=== PATIENT | female | born 1955 | race Two or more races ===

== ENCOUNTER 2019-04-21 09:56 | Outpatient (CLI) | payer MEDICAID ==
[2019-04-21 10:28] LABS: EOSINOPHILS % (AUTO) 0.8 % (0.0-3.0); HEMATOCRIT 43.9 % (37.0-47.0); HEMOGLOBIN 14.5 G/DL (12.0-16.0); LYMPHOCYTES % (AUTO) 29.1 % (20.0-45.0); MEAN CORPUSCULAR VOLUME 92 FL (80-99); NEUTROPHILS % (AUTO) 63.1 % (45.0-75.0); PLATELET COUNT 245 K/UL (150-450); RED BLOOD COUNT 4.77 M/UL (4.20-5.40); RED CELL DISTRIBUTION WIDTH 11.7 % (11.6-14.8); WHITE BLOOD COUNT 6.7 K/UL (4.8-10.8)
[2019-04-21 10:39] LABS: APPEARANCE,URINE CLEAR; BILIRUBIN, URINE NEGATIVE (NEGATIVE); COLOR,URINE PALE YELLOW; GLUCOSE, URINE (UA) NEGATIVE (NEGATIVE); INR 0.9 (0.9-1.1); KETONES,URINE 1+ (NEGATIVE); LEUKOCYTE ESTERASE ,URINE NEGATIVE (NEGATIVE); NITRITE,URINE NEGATIVE (NEGATIVE); PH,URINE 8 (4.5-8.0); PROTEIN,URINE NEGATIVE (NEGATIVE); UROBILINOGEN,URINE NORMAL MG/DL (0.0-1.0)
[2019-04-21 10:46] LABS: ANION GAP 7 mmol/L (5-15); BLOOD UREA NITROGEN 13 mg/dL (7-18); CALCIUM 9.8 MG/DL (8.5-10.1); CARBON DIOXIDE 31 MMOL/L (21-32); CHLORIDE 106 MMOL/L (98-107); CREATININE 0.5 MG/DL (0.55-1.30); POTASSIUM 4.5 MMOL/L (3.5-5.1); SODIUM 143 MMOL/L (136-145)
--- NOTE | 2019-04-21 11:38 | Diagnostic Imaging Report ---
Indication: Cough Technique: 2 views of the chest Comparison: none Findings: Numerous calcified granulomata are seen in the lung apices, particularly on the left. Pleural and parenchymal scarring is seen at the left lung apex, and some parenchymal scarring is seen at the right lung apex. No definite infiltrates, effusions, congestion. Normal heart size. Calcifications projected over the mediastinum may reflect calcite granulomas lymph nodes. Impression: Evidence of old granulomatous disease, as described No definite acute process
== END 2019-04-21 11:56 | disposition home or self-care (01) ==
LOC: RAD 09:56
DX: D05.11 Intraductal carcinoma in situ of right breast (principal); R05 Cough
CPT/HCPCS: 36415; 71046; 80048; 81003; 85025; 85610; 85730; 93005

== ENCOUNTER 2019-05-12 09:42 | Day surgery (SDC) | payer MEDICAID ==
--- NOTE | 2019-05-09 15:00 | Pre-op HX & Phy Repo 2 SIG ---
DATE OF ADMISSION: 05/12/2019 SCHEDULED FOR OUTPATIENT SURGERY: May 12, 2019. HISTORY OF PRESENT ILLNESS: The patient is a 63-year-old female in overall good health with ductal carcinoma in situ of the right breast. The patient presented with a right breast mass in the upper outer quadrant. The imaging revealed to be a benign cyst, however, two suspicious areas were identified in the upper outer quadrant of the right breast on mammogram and ultrasound at 10 o'clock 6 cm from the nipple a 4 x 4 x 3 mm suspicious mass and at 11 o'clock 3 cm from the nipple an 8 x 5 x 8 mm suspicious mass. Core biopsy revealed ductal carcinoma in situ. She is scheduled to undergo right breast partial mastectomy with preoperative bracketing needle localization. PAST MEDICAL HISTORY/MEDICATIONS: None. ALLERGIES: None. OPERATIONS: Ear surgery x2. REVIEW OF SYSTEMS: She has no prior history of breast disease. She has a cousin, who had breast cancer. She is 2, para 2, menopausal. PHYSICAL EXAMINATION: VITAL SIGNS: The patient is 5 foot 2 inches, 121 pounds. Vital signs within normal limits. HEENT: Within normal limits. LUNGS: Clear. HEART: Regular rhythm. BREASTS: Moderate in size and ptotic. There is 1 cm mass in the upper outer quadrant of the right breast consistent with benign cyst. There is no axillary or supraclavicular lymphadenopathy. ABDOMEN: Soft. PELVIC: Per primary care physician. RECTAL: Per primary care physician. EXTREMITIES: Without edema. NEUROLOGIC: Physiologic. IMPRESSION: Extensive ductal carcinoma in situ, right breast. PLAN: Right breast partial mastectomy with preoperative bracketing needle localization. I have had a full discussion with the patient regarding the nature of her condition, the nature of the surgery, indications, alternatives, options, and risks including bleeding, infection, scarring, distortion, deformity of breast and/or nipple, need for additional surgery based on final pathology, need for additional treatments based on final pathology, etc. All questions have been answered. She understands and agrees to proceed. Jackson Hills M.D. DR: JACOBO/CLAIR JOB#: [id number] CC:
[2019-05-12] VITALS (14 sets, daily range): BP systolic 131–172; BP diastolic 72–100
[~2019-05-12] VITALS: Ht 158 cm; Wt 54.4 kg
[~2019-05-12 09:42] MED LIST: Bacitracin 50000 Units Vial ONE; Bupivacaine 0.5% Inj 30 ml vial INJ ONE; Bupivacaine w/Epi 0.5% 30ml Vial INJ ONE; Lidocaine 1% 10mg/ml/EPI 0.01mg/ml 50ml INJ ONE; [UNRECOGNIZED DRUG - OTHER] PO
[2019-05-12] MEDS ORDERED: LR 1000ml 1,000 ML IVLG SCH (09:58)
[2019-05-12] MEDS ORDERED: HYDROcodone/Acetamin 5/325 tab ORAL PRN ×2 (10:00→12:00)
[2019-05-12] MEDS ORDERED: Atropine Sulfate 0.4mg/ml inj IVP PRN (10:00)
[2019-05-12] MEDS ORDERED: Midazolam 2mg/2ml Inj IVP PRN (10:00)
[2019-05-12] MEDS ORDERED: Ketorolac 30mg Inj IV PRN ×2 (10:00)
[2019-05-12] MEDS ORDERED: oxyCODONE HCL/Acetaminophen 5/325mg ORAL PRN (10:00)
[2019-05-12] MEDS ORDERED: HYDROcodone/Acetamin 7.5/325 tab ORAL PRN (10:00)
[2019-05-12] MEDS ORDERED: Labetalol 5mg/ml 20ml vial IV PRN (10:00)
[2019-05-12] MEDS ORDERED: Hydromorphone 0.5mg/0.5ml inj IVP PRN (10:00)
[2019-05-12] MEDS ORDERED: Metoclopramide 10mg/2ml Inj IVP PRN (10:00)
[2019-05-12] MEDS ORDERED: LORazepam Inj 2mg/ml 1ml IV PRN (10:00)
[2019-05-12] MEDS ORDERED: fentaNYL 100 mcg/2 mL IV PRN (10:00)
[2019-05-12] MEDS ORDERED: Acetaminophen (Non formulary) 100 ML IV ONE (10:00)
[2019-05-12] MEDS ORDERED: Meperidine 50mg/ml Inj(FOR RIGORS ONLY) IVP PRN (10:00)
[2019-05-12] MEDS ORDERED: DiphenhydrAMINE 50mg/ml Inj IVP PRN (10:00)
--- NOTE | 2019-05-12 10:02 | Pre-Procedure Note/Attestation ---
Pre-Procedure Note/Attestation Complete Prior to Procedure Planned Procedure: right Procedure Narrative: right breast partial mastectomy with pre-op bracketing needle localization Indications for Procedure Pre-Operative Diagnosis: DCIS right breast Attestation I attest that I discussed the nature of the procedure; its benefits; risks and complications; and alternatives (and the risks and benefits of such alternatives ), prior to the procedure, with the patient (or the patient's legal international sales representative). I attest that, if there was a reasonable possibility of needing a blood transfusion, the patient (or the patient's legal international sales representative) was given the [facility] standardized written summary, pursuant to the Mariano Dali Blood Safety Act ([place] Health and Safety Code # 1645, as amended). I attest that I re-evaluated the patient just prior to the surgery and that there has been no change in the patient's H&P, except as documented below: none Jackson Hills MD May 12, 2019 10:02
[2019-05-12] MEDS ORDERED: Lidocaine 1% Plain 30 ml INJ ONE (10:10)
[2019-05-12] MEDS ORDERED: Lidocaine 1% MPF 10mg/ml 5ml ONE (10:10)
[2019-05-12] MEDS ORDERED: Dexamethasone 4mg/ml vial ONE (10:10)
[2019-05-12] MEDS ORDERED: fentaNYL 100 mcg/2 mL IV ONE (10:11)
[2019-05-12] MEDS ORDERED: Midazolam 2mg/2ml Inj ONE (10:11)
[2019-05-12] MEDS ORDERED: Propofol 1,000mg/ 100ml btl IV ONE (10:30)
[2019-05-12] MEDS ORDERED: Sterile Water Irrig 1000ml IRRIG ONE (10:30)
[2019-05-12] MEDS ORDERED: LR 1000ml ONE (10:30)
--- NOTE | 2019-05-12 11:07 | Anethesia Preoperative Eval ---
Anesthesia Pre-op PMH/ROS General Date of Evaluation: May 12, 2019 Time of Evaluation: 10:31 Anesthesiologist: Kevin ASA Score: ASA 3 Mallampati Score Class I : Soft palate, uvula, fauces, pillars visible Class II: Soft palate, uvula, fauces visible Class III: Soft palate, base of uvula visible Class IV: Only hard plate visible Mallampati Classification: Class II Surgeon: Jeana Diagnosis: R Breast Carcinoma In Situ Surgical Procedure: R Breast Partial Mastectomy Anesthesia History: none Family History: no anesthesia problems Allergies: Coded Allergies: No Known Allergies (Unverified , 05/07/19) Medications: see eMAR Patient NPO?: Yes NPO Date: May 11, 2019 NPO Time: 1700 Past Medical History Cardiovascular: Reports: HTN Hematology/Immune: Reports: other - Breast carcinoma in Situ PSxH Narrative: Ear Sx Anesthesia Pre-op Phys. Exam Physician Exam Last Vital Signs Date Time Temp Pulse Resp B/P (MAP) Pulse Ox O2 Delivery O2 Flow Rate FiO2 05/12/19 10:30 97.5 82 20 150/82 (104) 97 05/12/19 10:20 Room Air Constitutional: NAD Neurologic: CN 2-12 intact Cardiovascular: RRR Respiratory: CTA Gastrointestinal: S/NT/ND Airway Exam Mallampati Score: Class II MO: limited ROM: limited Teeth: missing, intact Anesthesia Pre-op A/P Risk Assessment & Plan Assessment: ASA 3 Plan: GA Status Change Before Surgery: No Pre-Antibiotics Dru Gram Ancef IV Given Within 1 Hr of Incision: Yes Time Given: 10:46 Jay Brown MD May 12, 2019 11:07
--- NOTE | 2019-05-12 11:08 | 48 Hour Post Anesthesia Eval ---
Post Anesthesia Evaluation Procedure: R Breast Carcinoma In Situ Date of Evaluation: May 12, 2019 Time of Evaluation: 14:12 Blood Pressure Systolic: 143 0: 78 Pulse Rate: 79 Respiratory Rate: 18 Temperature (Fahrenheit): 98.2 O2 Sat by Pulse Oximetry: 100 Airway: patent Nausea: No Vomiting: No Pain Intensity: 2 Hydration Status: adequate Cardiopulmonary Status: Stable Mental Status/LOC: patient returned to baseline Follow-up Care/Observations: 0 Post-Anesthesia Complications: 0 Follow-up care needed: ready to discharge Jay Brown MD May 12, 2019 11:08
--- NOTE | 2019-05-12 11:08 | Immediate Post-Op Evaluation ---
Immediate Post-Op Evalulation Immediate Post-Op Evalulation Procedure: R Breast Carcinoma In Situ Date of Evaluation: May 12, 2019 Time of Evaluation: 12:08 IV Fluids: 400 LR Blood Products: 0 Estimated Blood Loss: 17 Urinary Output: 0 Blood Pressure Systolic: 147 Blood Pressure Diastolic: 99 Pulse Rate: 86 Respiratory Rate: 16 O2 Sat by Pulse Oximetry: 100 Temperature (Fahrenheit): 97.4 Pain Score (1-10): 2 Nausea: No Vomiting: No Complications 0 Patient Status: awake, reacts, patent, none Hydration Status: adequate Dru Gram Ancef IV Given Within 1 Hr of Incision: Yes Time Given: 10:46 Jay Brown MD May 12, 2019 11:08
[2019-05-12] MEDS ORDERED: NS Irrig 1000ml IRRIG ONE (11:19)
--- NOTE | 2019-05-12 11:57 | Brief Operative Note ---
Immediate Post Operative Note Operative Note Pre-op Diagnosis: DCIS right breast Procedure: right breast partial mastectomy with pre-op bracketing needle localization Post-op Diagnosis: same Post-op Diagnosis: same as pre-op Findings: consistent w/pre-op dx studies Surgeon: aguila Anesthesiologist: nilam Anesthesia: general Specimen: yes - right breast tissue Complications: none Condition: stable Fluids: see anesthesia record Estimated Blood Loss: minimal Drains: none Implant(s) used?: No Jackson Hills MD May 12, 2019 11:57
[2019-05-12] MEDS ORDERED: Tylenol #3 tab (300mg/30mg) ORAL PRN (12:00)
[2019-05-12] MEDS ORDERED: HYDROmorphone 1mg/ml Carpuject SUBQ PRN (12:00)
[2019-05-12] MEDS ORDERED: D5 1/2NS 1,000 ML IV SCH (16:00)
--- NOTE | 2019-05-12 17:15 | Operative Note - Dictated ---
DATE OF OPERATION: 05/12/2019 SURGEON: Jackson Hills M.D. GRANITE SETTER: None. ANESTHESIOLOGIST: Jay Brown M.D. TYPE OF ANESTHESIA: General. PREOPERATIVE DIAGNOSIS: Extensive ductal carcinoma in situ, right breast. POSTOPERATIVE DIAGNOSIS: Extensive ductal carcinoma in situ, right breast. OPERATION PERFORMED: Right breast partial mastectomy with preoperative bracketing needle localization. DESCRIPTION OF PROCEDURE: The patient was taken to the operating room and under general anesthesia with sequential compression device stockings in place, she was prepped and draped in usual fashion. There were 2 wire localizations because the extensive DCIS extended from near the nipple areolar complex at 10 o'clock of the right breast out to the periphery of the upper outer quadrant. A curvilinear outer breast incision was made achieving hemostasis with cautery and dissecting flaps circumferentially. Both wires were brought into the field. The entire quadrant was resected using cautery for hemostasis. The specimen was oriented with suture markers placed anterior, medial, and superior. Specimen radiograph confirmed the presence of the calcifications. The field was irrigated and hemostasis carefully secured with cautery. Incision was closed with interrupted 3-0 Vicryl deep dermal subcutaneous sutures followed by continuous 4-0 Monocryl subcuticular suture. Tincture of benzoin and half-inch Steri-Strips were applied followed by dry sterile dressing. Final sponge, needle counts were correct. The patient tolerated the procedure well and left the operating room in stable condition. Jackson Hills M.D. DR: YUE JOB#: [id number] CC:
[2019-05-13] MEDS ORDERED: Heparin 5000 units/ml inj ONE (07:39)
[2019-05-13] MEDS ORDERED: Vancomycin 1gm vial IVPB ONE (07:39)
[2019-05-13] MEDS ORDERED: Gelfoam Size TOPIC ONE (07:40)
[2019-05-13] MEDS ORDERED: Bupivacaine w/Epi 0.5% 30ml Vial INJ ONE (07:40)
[2019-05-13] MEDS ORDERED: Bacitracin 50000 Units Vial ONE (07:40)
[2019-05-13] MEDS ORDERED: Thrombin 5000 units TOPIC ONE (07:40)
== END 2019-05-12 14:45 | disposition home or self-care (01) ==
LOC: SUR 09:42
DX: D05.11 Intraductal carcinoma in situ of right breast (principal); Z80.3 Family history of malignant neoplasm of breast; I10 Essential (primary) hypertension
CPT/HCPCS: 19301; J0690; J1100; J2001; J2250; J2405; J2704; J3010; Z7512; 94003; 94150

== ENCOUNTER 2019-06-12 07:55 | Inpatient (IN) | payer MEDICAID ==
[2019-06-02 10:24] LABS: APPEARANCE,URINE SLIGHTLY CLOUDY; BILIRUBIN, URINE NEGATIVE (NEGATIVE); COLOR,URINE PALE YELLOW; GLUCOSE, URINE (UA) NEGATIVE (NEGATIVE); KETONES,URINE NEGATIVE (NEGATIVE); LEUKOCYTE ESTERASE ,URINE 2+ (NEGATIVE); NITRITE,URINE NEGATIVE (NEGATIVE); PH,URINE 7 (4.5-8.0); PROTEIN,URINE NEGATIVE (NEGATIVE); UROBILINOGEN,URINE NORMAL MG/DL (0.0-1.0)
[2019-06-02 10:36] LABS: BASOPHILS % (AUTO) 1.8 % (0.0-2.0); EOSINOPHILS % (AUTO) 1.1 % (0.0-3.0); HEMATOCRIT 44.8 % (37.0-47.0); HEMOGLOBIN 14.5 G/DL (12.0-16.0); LYMPHOCYTES % (AUTO) 37.3 % (20.0-45.0); MEAN CORPUSCULAR VOLUME 95 FL (80-99); MONOCYTES % (AUTO) 5.5 % (1.0-10.0); NEUTROPHILS % (AUTO) 54.3 % (45.0-75.0); PLATELET COUNT 219 K/UL (150-450); RED BLOOD COUNT 4.72 M/UL (4.20-5.40); RED CELL DISTRIBUTION WIDTH 12.3 % (11.6-14.8); WHITE BLOOD COUNT 4.9 K/UL (4.8-10.8)
[2019-06-02 10:42] LABS: ANION GAP 8 mmol/L (5-15); BLOOD UREA NITROGEN 18 mg/dL (7-18); CALCIUM 9.2 MG/DL (8.5-10.1); CARBON DIOXIDE 29 MMOL/L (21-32); CHLORIDE 106 MMOL/L (98-107); CREATININE 0.5 MG/DL (0.55-1.30); POTASSIUM 4.2 MMOL/L (3.5-5.1); SODIUM 143 MMOL/L (136-145)
--- NOTE | 2019-06-07 15:16 | Cardiology Report ---
APPROVED REPORT EKG Measurement Heart [id number] MT [id number] [id number] Normal sinus rhythm Nonspecific ST abnormality Abnormal ECG
--- NOTE | 2019-06-10 17:00 | Pre-op HX & Phy Repo 2 SIG ---
DATE OF ADMISSION: 06/12/2019 SCHEDULED FOR SURGERY: June 12, 2019. HISTORY OF PRESENT ILLNESS: The patient is a 64-year-old female in overall good health with invasive ductal carcinoma of the right breast and extensive ductal carcinoma in situ. The patient presented with a recent onset of a right breast mass in the upper outer quadrant. Imaging revealed a benign cyst, but two suspicious areas were identified in the upper outer quadrant of the right breast on mammogram and ultrasound. At 10 o'clock, 6 cm from nipple was a 4 x 4 x 3 mm suspicious mass and at 11 o'clock, 3 cm from nipple an 8 x 8 x 8 mm suspicious mass. Core biopsy of both revealed ductal carcinoma in situ. She underwent right breast partial mastectomy with preoperative bracketing needle localization on May 12, 2019. The pathology revealed not only extensive ductal carcinoma in situ, but invasive ductal carcinoma as well and the inferior margin resected was positive for invasive and ductal carcinoma in situ. The patient is estrogen and progesterone receptor positive, HER2 negative. Her right breast has been healing uneventfully. She was seen in consultation with Oncology and we are proceeding now with re-excision of right breast carcinoma and right axillary lymph node biopsy. PAST MEDICAL HISTORY/MEDICATIONS: None. ALLERGIES: None. OPERATIONS: Ear surgery x2. REVIEW OF SYSTEMS: She has a cousin, who had breast cancer. She has no prior history of breast disease. She is 2, para 2, and she is menopausal. PHYSICAL EXAMINATION: GENERAL: The patient is 5 feet 2 inches, approximately 120 pounds. VITAL SIGNS: Normal vital signs. HEENT: Within normal limits. LUNGS: Clear. HEART: Regular rhythm. BREASTS: Moderate in size and ptotic. There is a healing incision in the upper outer quadrant of the right breast, a curvilinear incision. Left breast unremarkable. No palpable axillary or supraclavicular lymphadenopathy. ABDOMEN: Soft. PELVIC AND RECTAL: Per primary care physician. EXTREMITIES: Without edema. NEUROLOGIC: Physiologic. IMPRESSION: Invasive ductal carcinoma right breast and extensive ductal carcinoma in situ with positive inferior margin on wide excision partial mastectomy on May 12, 2019. PLAN: Re-excision right breast carcinoma and right axillary lymph node biopsy. I have had a full discussion with the patient regarding the condition, the nature of the surgery, indications, alternatives, options, and risks including bleeding, infection, injury to adjacent structures or organs, need for additional surgery or treatment based on final pathology, including radiation and chemotherapy and potentially more surgery. I have also discussed the risk of scarring, distortion of the breast and nipple. She understands and agrees to proceed. Jackson Hills M.D. DR: LINN JOB#: [id number] CC:
[2019-06-12] VITALS (13 sets, daily range): BP systolic 113–153; BP diastolic 54–74
[~2019-06-12] VITALS: Ht 160 cm; Wt 54.4 kg
[~2019-06-12 07:55] MED LIST changes: -Bacitracin 50000 Units Vial ONE; -Bupivacaine 0.5% Inj 30 ml vial INJ ONE; -Bupivacaine w/Epi 0.5% 30ml Vial INJ ONE; -Lidocaine 1% 10mg/ml/EPI 0.01mg/ml 50ml INJ ONE
--- NOTE | 2019-06-12 09:20 | Pre-Procedure Note/Attestation ---
Pre-Procedure Note/Attestation Complete Prior to Procedure Planned Procedure: right Procedure Narrative: re-excision right breast carcinoma and right axillary lymph node biopsy Indications for Procedure Pre-Operative Diagnosis: carcinoma right breast Attestation I attest that I discussed the nature of the procedure; its benefits; risks and complications; and alternatives (and the risks and benefits of such alternatives ), prior to the procedure, with the patient (or the patient's legal employee's representative). I attest that, if there was a reasonable possibility of needing a blood transfusion, the patient (or the patient's legal employee's representative) was given the [facility] standardized written summary, pursuant to the Mariano Dali Blood Safety Act ([place] Health and Safety Code # 1645, as amended). I attest that I re-evaluated the patient just prior to the surgery and that there has been no change in the patient's H&P, except as documented below:none Jackson Hills MD Jun 12, 2019 09:20
[2019-06-12] MEDS ORDERED: Bupivacaine 0.5% Inj 30 ml vial INJ ONE (09:36)
[2019-06-12] MEDS ORDERED: Lidocaine 1% 10mg/ml/Epi 0.005mg/ml 30ml vial INJ ONE (09:36)
[2019-06-12] MEDS ORDERED: Bacitracin 50000 Units Vial ONE (09:37)
[2019-06-12] MEDS ORDERED: fentaNYL 100 mcg/2 mL IV ONE (09:46)
[2019-06-12] MEDS ORDERED: Midazolam 2mg/2ml Inj ONE (09:47)
[2019-06-12] MEDS ORDERED: Propofol 200mg/20ml IV ONE (09:51)
[2019-06-12] MEDS ORDERED: Lidocaine 1% MPF 10mg/ml 5ml ONE (09:51)
[2019-06-12] MEDS ORDERED: NS Irrig 1000ml ONE (10:00)
[2019-06-12] MEDS ORDERED: LR 1000ml ONE (10:00)
[2019-06-12] MEDS ORDERED: Sterile Water Irrig 1000ml IRRIG ONE (10:30)
[2019-06-12] MEDS ORDERED: LR 1000ml 1,000 ML IVLG SCH (10:46)
--- NOTE | 2019-06-12 10:46 | Anethesia Preoperative Eval ---
Anesthesia Pre-op PMH/ROS General Date of Evaluation: Jun 12, 2019 Time of Evaluation: 10:02 Anesthesiologist: Jose Roberto ASA Score: ASA 2 Mallampati Score Class I : Soft palate, uvula, fauces, pillars visible Class II: Soft palate, uvula, fauces visible Class III: Soft palate, base of uvula visible Class IV: Only hard plate visible Mallampati Classification: Class II Surgeon: Jeana Diagnosis: Farhana ROBISON Surgical Procedure: Mastectomy Anesthesia History: none Family History: no anesthesia problems Allergies: Coded Allergies: No Known Allergies (Unverified , 06/12/19) Medications: see eMAR Patient NPO?: Yes NPO Date: Jun 11, 2019 NPO Time: 1900 Past Medical History Cardiovascular: Denies: HTN, CAD, MD, valve dz, arrhythmia, other Pulmonary: Denies: asthma, COPD, WILMA, other Gastrointestinal/Genitourinary: Reports: GERD - mild; Denies: CRI, ESRD, other Neurologic/Psychiatric: Reports: depression/anxiety; Denies: dementia, CVA, TIA, other Endocrine: Denies: DM, hypothyroidism, steroids, other HEENT: Denies: cataract (L), cataract (R), glaucoma, TYONEK (L), TYONEK (R), other Hematology/Immune: Denies: anemia, DVT, bleeding disorder, other Musculoskeletal/Integumentary: Denies: OA, RA, DJD, DDD, edema, other PMH Narrative: as above PSxH Narrative: Mastectomy Anesthesia Pre-op Phys. Exam Physician Exam Last Vital Signs Date Time Temp Pulse Resp B/P (MAP) Pulse Ox O2 Delivery O2 Flow Rate FiO2 06/12/19 08:37 Room Air 06/12/19 08:34 97.5 82 18 123/68 (86) 99 Constitutional: NAD Neurologic: CN 2-12 intact Cardiovascular: RRR, no M/R/G Respiratory: CTA Gastrointestinal: S/NT/ND Airway Exam Mallampati Score: Class II MO: limited Neck: flexible ROM: full Teeth: missing Dentures: no upper, no lower Anesthesia Pre-op A/P Labs see chart Studies Pre-op Studies: EKG - NSR Risk Assessment & Plan Assessment: ASA 2 Plan: GA with LMA Status Change Before Surgery: No Pre-Antibiotics Drug: Ancef 1gr Given Within 1 Hr of Incision: Yes Time Given: 10:27 Wilton Cid MD Jun 12, 2019 10:46
[2019-06-12] MEDS ORDERED: Morphine Sulfate 10mg/ml Inj ONE (10:59)
[2019-06-12] MEDS ORDERED: DiphenhydrAMINE 50mg/ml Inj IVP PRN (11:00)
[2019-06-12] MEDS ORDERED: Ketorolac 30mg Inj IV PRN (11:00)
[2019-06-12] MEDS ORDERED: Hydromorphone 0.5mg/0.5ml inj IVP PRN (11:00)
--- NOTE | 2019-06-12 11:56 | Immediate Post-Op Evaluation ---
Immediate Post-Op Evalulation Immediate Post-Op Evalulation Procedure: Revision of R partial mastectomy with axillary l/n disection Date of Evaluation: Jun 12, 2019 Time of Evaluation: 11:55 IV Fluids: 1000 Blood Products: none Estimated Blood Loss: min Urinary Output: none Blood Pressure Systolic: 129 Blood Pressure Diastolic: 72 Pulse Rate: 73 Respiratory Rate: 20 O2 Sat by Pulse Oximetry: 98 Temperature (Fahrenheit): 97.6 Pain Score (1-10): 1 Nausea: No Vomiting: No Complications none Patient Status: reacts, patent, none Hydration Status: adequate Wilton Cid MD Jun 12, 2019 11:56
--- NOTE | 2019-06-12 11:57 | Brief Operative Note ---
Immediate Post Operative Note Operative Note Pre-op Diagnosis: carcinoma right breast Procedure: re-excision right breast carcinoma and right axillary sentinel lymph node biopsy Post-op Diagnosis: same Post-op Diagnosis: same as pre-op Findings: consistent w/pre-op dx studies Surgeon: aguila Anesthesiologist: terrance Anesthesia: general Specimen: yes - right breast tissue; right axillary lymph node Complications: none Condition: stable Fluids: see anesthesia record Estimated Blood Loss: minimal Drains: EMERALD Implant(s) used?: No Jackson Hills MD Jun 12, 2019 11:57
[2019-06-12] MEDS ORDERED: HYDROmorphone 1mg/ml Carpuject SUBQ PRN (12:00)
[2019-06-12] MEDS ORDERED: HYDROcodone/Acetamin 5/325 tab ORAL PRN (12:00)
--- NOTE | 2019-06-12 13:00 | NUR ---
NURSE NOTES: Patient received from PACU via bed at 1300, in stable condition on O2 3L NC. No distress noted. Right axillary dressing CDI, Right EMERALD in place, with serosanguineous output noted. Surgical bra on. Initiated "no blood draws or blood pressures on right arm" sign above HOB. RUE warm, CMS +, wiggles, capillary refill <3 secs. No pain. Bilateral SCDS on. No NV. Belongings reviewed and signed, glasses and cellphone left in room. Oriented patient to room and call light for safety. Friend at bedside. Bed in lowest position, will continue to monitor.
[2019-06-12] MEDS: D5 1/2NS w/KCl 20mEq 1,000 ML IV SCH (15:54)
[2019-06-12] MEDS: ceFAZolin sod 1 GM in D5W 55 ML IV SCH (18:43)
--- NOTE | 2019-06-12 19:05 | NUR ---
HAND-OFF: Report given to Dorothea SMITH. Addendum: 06/12/19 at 2056 by Sherri Olivares RN I spoke to Dong HUDDLESTON, at [employer] station for IS. Patient still has not received it. Addendum: 06/12/19 at 2058 by Sherri Olivares RN Output: Right EMERALD: 5 ml (Serosanguineous)
--- NOTE | 2019-06-12 19:30 | NUR ---
NURSE NOTES: Receive a report from LUIS Polanco. Done round. Pt is asleep but easily aroused by calling her name. Denies pain. Op site is clear without bleeding signs. On surgical bra with EMERALD inserted and drained with small amount of serosanguineous drainage. On SCDs bilateral. Leave call light within reach. Will continue to monitor.
--- NOTE | 2019-06-12 19:45 | Operative Note - Dictated ---
DATE OF OPERATION: 06/12/2019 SURGEON: Jackson Hills M.D. PRINTING ROLLER POLISHER: None. ANESTHESIOLOGIST: Wilton Cid M.D. TYPE OF ANESTHESIA: General. PREOPERATIVE DIAGNOSIS: Invasive ductal carcinoma and ductal carcinoma in situ, right breast. POSTOPERATIVE DIAGNOSIS: Invasive ductal carcinoma and ductal carcinoma in situ, right breast. OPERATION PERFORMED: Re-excision of right breast carcinoma and right axillary sentinel lymph node biopsy. DESCRIPTION OF PROCEDURE: The patient was taken to the operating room and under general anesthesia with sequential compression device stockings in place, she was prepped and draped in usual fashion. The patient was known to have extensive ductal carcinoma in situ and on 05/12/2019, she underwent wide excision with bracketing needle localization. Pathology revealed not only ductal carcinoma in situ, but invasive ductal carcinoma with involvement of the inferior margin. The prior curvilinear right breast outer quadrant incision was reopened evacuating a small seroma. The entire inferior margin was resected and the new distant margin marked with suture. Initial pathology evaluation revealed the new distant margin to be clear. Hemostasis carefully achieved with cautery, using cautery and the Thunderbeat electrosurgical device. The field was irrigated and hemostasis was secured. Incision was closed with interrupted deep dermal subcutaneous 3-0 Vicryl and skin closed with continuous 5-0 nylon. Then, an axillary incision was made achieving hemostasis with cautery, incising the clavipectoral fascia. There were no palpable or visible nodes. A low level dissection was performed. The pathologist confirmed the presence of one small node appearing negative. Through a separate stab incision inferiorly, a large flat Nicola-Lopez was placed into the axilla and sutured to the skin with 2-0 nylon skin suture. The field was irrigated and hemostasis achieved with the Thunderbeat surgical device. The clavipectoral fascia was closed with 3-0 Vicryl interrupted, subcutaneous tissue was closed with interrupted 3-0 Vicryl, and skin closed with continuous 5-0 Monocryl subcuticular suture. Mastisol and half-inch Steri-Strips were applied to both incisions followed by dry sterile dressing. Final sponge and needle counts were correct. The patient tolerated the procedure well and left the operating room in good condition. Jackson Hills M.D. DR: GINETTE JOB#: [id number] CC:
[2019-06-13] VITALS: BP 108/61
--- NOTE | 2019-06-13 | NUR ---
NURSE NOTES: Pt is awake and alert. I/S at bed side. Breathing is even and non labored. Lung sound is clear bilateral. Spo2 checked 98% in RA. No acute distress noted. No pain noted. Reinforce to do I/S every hour while awake. After drink a sip of water, noted vomiting 25ml amount of vomiting. Nausea relieved right after. Will continue to monitor.
[2019-06-13] MEDS: ceFAZolin sod 1 GM in D5W 55 ML IV SCH (02:25)
[2019-06-13] MEDS: D5 1/2NS w/KCl 20mEq 1,000 ML IV SCH (02:25)
[2019-06-13 04:31] VITALS: BP 130/73
[2019-06-13 04:45] VITALS: BP 104/66
--- NOTE | 2019-06-13 05:30 | NUR ---
NURSE NOTES: Op site is clear with EMERALD inserted state on right upper chest area. Denies pain. Nausea sense relieved after medication. Demonstrate to empty out EMERALD. Verbalize understanding. Will continue to monitor. Total output of EMERALD: 8ml
--- NOTE | 2019-06-13 07:04 | NUR ---
NURSE NOTES: Report received from o RN, rounds made. Patient sitting up at bedside. Alert, oriented x4, calm, no distress on RA. Bilateral SCDs off. Denies NV, however appetite poor. IVF (D5 1/2 NS +20 KCL) infusing to LH at 75 ml/hr. Right axillary surgical dressing CDI, surgical bra on, Right EMERALD x1 intact, serosanguineous output noted, CMS to RUE +, skin warm, moves/wiggles, pulses palpable. Denies pain. Call light in reach, bed in lowest position, will continue to monitor.
--- NOTE | 2019-06-13 07:30 | NUR ---
HAND-OFF: Report given to LUIS Polanco. Round is done. Pt is awake and drinking orange juice. Nausea relived but mild pain noted. AM shift will cover pain control soon. Will continue to monitor.
--- NOTE | 2019-06-13 07:38 | 48 Hour Post Anesthesia Eval ---
Post Anesthesia Evaluation Procedure: Revision of R partial mastectomy with axillary l/n disection Date of Evaluation: Jun 13, 2019 Time of Evaluation: 07:37 Blood Pressure Systolic: 109 0: 58 Pulse Rate: 72 Respiratory Rate: 20 Temperature (Fahrenheit): 97.5 O2 Sat by Pulse Oximetry: 98 Airway: patent Nausea: No Vomiting: No Pain Intensity: 1 Hydration Status: adequate Cardiopulmonary Status: stable Mental Status/LOC: patient returned to baseline Follow-up Care/Observations: n/a Post-Anesthesia Complications: none Follow-up care needed: ready to discharge Wilton Cid MD Jun 13, 2019 07:38
[2019-06-13 08:00] VITALS: BP 108/63
--- NOTE | 2019-06-13 08:15 | NUR ---
NURSE NOTES: Offered pain medication to patient, friend at bedside to translate, patient refused, denies pain at this time, will continue to monitor.
--- NOTE | 2019-06-13 08:44 | General Progress Note ---
Progress Note Progress Note Doing well. right breast and axilla incisions clean with intact steristrips. EMERALD drain 8cc IMp. Stable Plan: Discharge instructions/limitations/supplies provided/discussed Rx [place] #30 f/u office 06/19 Jackson Hills MD Jun 13, 2019 08:44
[2019-06-13 12:00] VITALS: BP 112/69
[2019-06-13] MEDS ORDERED: NORCO 5-325 TA1 EACH ORAL (12:15)
--- NOTE | 2019-06-13 12:17 | NUR ---
NURSE NOTES: Instruction for caring for EMERALD drain catheter was given to pt. Pt verbalized understanding and demonstrated properly. 4X4 gauze, paper tape was given to pt.
--- NOTE | 2019-06-13 12:37 | NUR ---
NURSE NOTES: Discharge instructions and prescription x1 reviewed with patient and friend, verbalized understanding. IV discontinued, no active bleeding. Denies pain. All belongings, discharge instructions, prescription x1 and supplies (4x4, paper tape, specimen cup for measuring output) given to patient. EMERALD (right) x1 remains in place, dressing CDI, with surgical bra on. Instructed patient to record output on paper every time she empties with date/time, squeeze bulb and close, verbalized understanding. Patient ambulated down to lobby with RN and friend in stable condition. Discharged home at 1237.
[2019-06-13] MEDS ORDERED: Tubing IV Secondary IV ONE (12:39)
--- NOTE | 2019-06-15 07:33 | Discharge Summary ---
Discharge Summary Discharge Summary _ DATE OF ADMISSION: 06/12/2019 DATE OF DISCHARGE: 06/13/2019 DISCHARGED BY: Dr. Jackson Hills HISTORY OF PRESENT ILLNESS: The patient is a 64-year-old female in overall good health with invasive ductal carcinoma of the right breast and extensive ductal carcinoma in situ. The patient presented with a recent onset of a right breast mass in the upper outer quadrant. Imaging revealed a benign cyst, but two suspicious areas were identified in the upper outer quadrant of the right breast on mammogram and ultrasound. At 10 o'clock, 6 cm from nipple was a 4 x 4 x 3 mm suspicious mass and at 11 o'clock, 3 cm from nipple an 8 x 8 x 8 mm suspicious mass. Core biopsy of both revealed ductal carcinoma in situ. She underwent right breast partial mastectomy with preoperative bracketing needle localization on May 12, 2019. The pathology revealed not only extensive ductal carcinoma in situ, but invasive ductal carcinoma as well and the inferior margin resected was positive for invasive and ductal carcinoma in situ. The patient is estrogen and progesterone receptor positive, HER2 negative. Her right breast has been healing uneventfully. She was seen in consultation with Oncology and was admitted for re-excision of right breast carcinoma and right axillary lymph node biopsy. BRIEF HOSPITAL COURSE: Patient has invasive ductal carcinoma of the right breast and extensive ductal carcinoma in situ with positive inferior margin on wide excision partial mastectomy done on May 12, 2019. She was admitted for reexcision of the right breast carcinoma and right axillary lymph node biopsy. The patient tolerated the procedure well and left the operating room in good condition. She was admitted for postop care. She was given pain management. She was placed on SCDs for DVT prophylaxis. She was given incentive spirometry. Diet was advanced. First day postop, patient was doing well. Right breast and axilla incisions were clean and with intact Steri-Strips. EMERALD drain stable. She was cleared for discharge home. PREOPERATIVE DIAGNOSIS: Invasive ductal carcinoma and ductal carcinoma in situ, right breast. POSTOPERATIVE DIAGNOSIS: Invasive ductal carcinoma and ductal carcinoma in situ, right breast. OPERATION PERFORMED: Re-excision of right breast carcinoma and right axillary sentinel lymph node biopsy. DISPOSITION: Patient was discharged home. DISCHARGE MEDICATIONS: Refer to Discharge Medication List. DISCHARGE INSTRUCTIONS: Follow-up on 06/19/2019. I have been assigned to complete a discharge summary on this account, I was not involved with the patient's management.--BECKA Ortiz Jacqueline Robles NP Jun 15, 2019 07:33
== END 2019-06-13 12:40 | disposition home or self-care (01) | DRG 363 ==
LOC: SUR 07:55 → 3E 13:24
PROC: 07B50ZX Excision of Right Axillary Lymphatic, Open Approach, Diagnostic (ICD-10-PCS; 2019-06-12)
PROC: 0HBT0ZZ Excision of Right Breast, Open Approach (ICD-10-PCS; principal; 2019-06-12 10:00)
DX: D05.11 Intraductal carcinoma in situ of right breast (principal); Z80.3 Family history of malignant neoplasm of breast
CPT/HCPCS: 36415; 80048; 81003; 85025; 85610; 85730; 87081; 93005; J2250; J2405